=== PATIENT | male | born 1965 | race American Indian/Alaskan Native ===

== ENCOUNTER 2019-08-13 19:01 | Emergency (ER) | payer OTHER ==
[2019-08-14] MEDS ORDERED: MAGNESIUM CITRATE 300 ML ORAL LIQD PO ONE (01:25)
--- NOTE | 2019-08-14 01:26 | Emergency Department Report ---
ED General Adult HPI - General Chief complaint: High BP Stated complaint: CANT URINATE/HBP Time Seen by Provider: 08/14/19 00:55 Source: patient, RN notes reviewed, old records reviewed Mode of arrival: Ambulatory Limitations: No Limitations - History of Present Illness Initial comments: Patient is a pleasant 54-year-old gentleman. The patient has a history of high blood pressure, thrombosed hemorrhoid, and constipation. He was seen in this department for days ago with a complaint of constipation. He had a thorough workup, uneventful course, and was discharged with appropriate medication. He presents to the ER with a complaint of recurrent painless constipation. He is urinating without difficulty. He denies additional complaints. He endorses compliance with his medications. He reports taking plenty of water. He has no abdominal pain. He is passing gas. He has not had a bowel movement to his satisfaction. In the emergency room, he was treated with a soapsuds enema, which markedly improved his symptoms. -: Gradual Consistency: constant Improves with: medication Worsens with: none - Related Data Previous Rx's Medication Instructions Recorded Last Taken Type Docusate Sodium [Colace] 100 mg PO BID PRN #20 capsule 08/10/19 08/13/19 Rx amLODIPine 10 mg PO DAILY #30 tab 08/10/19 08/13/19 Rx Allergies Allergy/AdvReac Type Severity Reaction Status Date / Time No Known Allergies Allergy Verified 08/13/19 20:23 ED Review of Systems ROS: Stated complaint: CANT URINATE/HBP Other details as noted in HPI Constitutional: denies: fever Eyes: denies: eye discharge ENT: denies: congestion Respiratory: denies: wheezing Cardiovascular: denies: syncope Gastrointestinal: constipation Genitourinary: denies: dysuria Psychiatric: anxiety Hematological/Lymphatic: denies: easy bleeding ED Past Medical Hx - Past Medical History Hx Hypertension: Yes Additional medical history: Ulcer - Surgical History Additional Surgical History: abd - Social History Smoking Status: Current Every Day Smoker Substance Use Type: None - Medications Home Medications: Home Medications Medication Instructions Recorded Confirmed Last Taken Type Docusate Sodium [Colace] 100 mg PO BID PRN #20 capsule 08/10/19 08/13/19 08/13/19 Rx amLODIPine 10 mg PO DAILY #30 tab 08/10/19 08/13/19 08/13/19 Rx ED Physical Exam - General Limitations: No Limitations General appearance: alert, anxious - Head Head exam: Present: atraumatic, normocephalic - Eye Eye exam: Present: normal appearance, EOMI. Absent: nystagmus - ENT ENT exam: Present: normal exam, normal orophraynx, mucous membranes moist, normal external ear exam - Neck Neck exam: Present: normal inspection, full ROM. Absent: tenderness, meningismus - Respiratory Respiratory exam: Present: normal lung sounds bilaterally. Absent: respiratory distress - Cardiovascular Cardiovascular Exam: Present: regular rate, normal rhythm, normal heart sounds. Absent: bradycardia, tachycardia, irregular rhythm, systolic murmur, diastolic murmur, rubs, gallop - GI/Abdominal GI/Abdominal exam: Present: soft, normal bowel sounds. Absent: distended, tenderness, guarding, rebound, rigid, pulsatile mass - Rectal Rectal exam: Present: deferred - Extremities Exam Extremities exam: Present: normal inspection, full ROM, other (2+ pulses noted in the bilateral upper and lower extremities. There is no long bony tenderness. The pelvis is stable. The muscular compartments are soft. There is no palpable cord. There is no redness, pus or streaking.). Absent: pedal edema, calf tenderness - Back Exam Back exam: Present: normal inspection, full ROM. Absent: tenderness, CVA tenderness (R), CVA tenderness (L), paraspinal tenderness, vertebral tenderness - Neurological Exam Neurological exam: Present: alert, other (there is no facial droop. The tongue is midline. The extraocular movements are intact bilaterally. There is 5/5 strength in the bilateral upper and lower extremities. Sensation is intact to light touch in the bilateral upper and lower extremities. Hearing is intact. Tongue is midline. Speech is fluid, lucent and intact. Appropriate thought content. V1, V2, V3 intact bilaterally. Walks with a steady gait. There is no past-pointing. There is normal [id number]. There is a negative Romberg examination.). Absent: motor sensory deficit - Psychiatric Psychiatric exam: Present: anxious - Skin Skin exam: Present: warm, dry, intact, normal color. Absent: rash ED Course Vital Signs 08/13/19 08/14/19 20:25 01:00 Temperature 98.2 F Pulse Rate 93 H Respiratory 18 18 Rate Blood Pressure 185/110 O2 Sat by Pulse 100 100 Oximetry - Reevaluation(s) Reevaluation #1: 08/14/19 03:34 Patient feels improved. Have large copious bowel movement. He can take magnesium citrate at home. ED Medical Decision Making - Lab Data Vital Signs 08/13/19 08/14/19 20:25 01:00 Temperature 98.2 F Pulse Rate 93 H Respiratory 18 18 Rate Blood Pressure 185/110 O2 Sat by Pulse 100 100 Oximetry - Radiology Data Radiology results: report reviewed, image reviewed X-ray from 5 days ago reviewed and appreciated. No acute pathology - Medical Decision Making Differential diagnosis, including not limited to: Constipation, chronic elevated blood pressure Assessment and plan: 54-year-old gentleman, afebrile with reassuring vital signs, with the exception of chronic hypertension, presenting with recurrent constipation, likely experiencing natural history of constipation. We offered to discharge patient with prescriptions for magnesium citrate, as well as fleets enema, versus option of remaining in the ER for soap suds enema, and magnesium citrate in the emergency room. The patient opted to remain here for treatment. He was treated with a soapsuds enema, which markedly improved his symptoms. Hypertension reviewed and appreciated. Please reference the [employer] clinical policy and hypertension which is asymptomatic. This patient does not have an emergent medical condition at this time, and he can follow up with an outpatient primary care doctor. Critical care attestation.: If time is entered above; I have spent that time in minutes in the direct care of this critically ill patient, excluding procedure time. ED Disposition Clinical Impression: Constipation, Elevated blood pressure reading Disposition: - TO HOME OR SELFCARE Is pt being admited?: No Does the pt Need Aspirin: No Condition: Stable Additional Instructions: Please remember to drinking 4-6 cups of water per day, every day. Please make sure to eat plenty of fiber, vegetables, and lean protein. Avoid consumption of sugar, and simple carbohydrates. Constipation typically takes weeks to improve. Please remember to take outpatient blood pressure medication that was prescribed on previous visit. Long-term complications of hypertension includes stroke, heart attack, disability, paralysis, blindness, loss of quality of life. Recommend follow-up with a primary care doctor within the next 3-4 weeks. Please return to emergency room right away with new, worsening or different symptoms, or symptoms not present on the initial emergency room evaluation. Referrals: LEOPOLDO ALVARADO FNP [Primary Care Provider] - 3-5 Days
[2019-08-14 06:33] VITALS: BP 156/86
== END 2019-08-14 02:20 | disposition home or self-care (01) ==
LOC: ED 19:01
DX: K59.00 Constipation, unspecified (principal); R03.0 Elevated blood-pressure reading, without diagnosis of hypertension; I10 Essential (primary) hypertension; F17.200 Nicotine dependence, unspecified, uncomplicated; Z79.899 Other long term (current) drug therapy

== ENCOUNTER 2019-09-10 18:09 | Emergency (ER) | payer OTHER ==
[2019-09-10] MEDS ORDERED: ASPIRIN 325 MG TAB PO ONE (19:57)
[2019-09-10] MEDS ORDERED: ASPIRIN 81 MG TAB CHEW PO ONE (19:57)
--- NOTE | 2019-09-10 20:02 | Emergency Department Report ---
ED Palpitations HPI - General Chief Complaint: Chest Pain Stated Complaint: CHEST PAIN/BELLA Time Seen by Provider: 09/10/19 19:53 Source: patient, EMS Mode of arrival: Stretcher Limitations: No Limitations - History of Present Illness Initial Comments: Patient is 54 years old male with history of bipolar disorder and hypertension. Patient brought to the emergency room via EMS for evaluation of palpitation that started after he smoked marijuana this morning. Patient found to have a heart rate of 145 beats per minutes showing a sinus tachycardia. Patient stated that he had some chest pain with a palpitation restarted but not completely resolved. Patient denied any fever or chills. No cough or shortness of breath. MD Complaint: rapid heart beat, "heart racing" -: This morning - Related Data Previous Rx's Medication Instructions Recorded Last Taken Type Docusate Sodium [Colace] 100 mg PO BID PRN #20 capsule 08/10/19 08/13/19 Rx amLODIPine 10 mg PO DAILY #30 tab 08/10/19 08/13/19 Rx Allergies Allergy/AdvReac Type Severity Reaction Status Date / Time No Known Allergies Allergy Verified 08/13/19 20:23 ED Review of Systems ROS: Stated complaint: CHEST PAIN/BELLA Other details as noted in HPI Comment: All other systems reviewed and negative Constitutional: denies: chills, fever Respiratory: denies: cough, shortness of breath, SOB with exertion Cardiovascular: palpitations. denies: chest pain Gastrointestinal: denies: abdominal pain, nausea, vomiting Musculoskeletal: denies: back pain Neurological: denies: headache, weakness, numbness, paresthesias, confusion, abnormal gait ED Past Medical Hx - Past Medical History Previous Medical History?: Yes Hx Hypertension: Yes Hx Psychiatric Treatment: Yes (Bipolar) Additional medical history: Ulcer - Surgical History Past Surgical History?: Yes Additional Surgical History: abd - Social History Smoking Status: Never Smoker Substance Use Type: None - Medications Home Medications: Home Medications Medication Instructions Recorded Confirmed Last Taken Type Docusate Sodium [Colace] 100 mg PO BID PRN #20 capsule 08/10/19 08/13/19 08/13/19 Rx amLODIPine 10 mg PO DAILY #30 tab 08/10/19 08/13/19 08/13/19 Rx ED Physical Exam - General Limitations: No Limitations General appearance: alert, in no apparent distress - Head Head exam: Present: atraumatic, normocephalic, normal inspection - Eye Eye exam: Present: normal appearance - ENT ENT exam: Present: normal exam, normal orophraynx, mucous membranes moist - Neck Neck exam: Present: normal inspection, full ROM. Absent: tenderness, meningismus, lymphadenopathy, thyromegaly - Respiratory Respiratory exam: Present: normal lung sounds bilaterally - Cardiovascular Cardiovascular Exam: Present: regular rate, normal rhythm, normal heart sounds - GI/Abdominal GI/Abdominal exam: Present: soft, normal bowel sounds. Absent: distended, tenderness, guarding, rebound, rigid, organomegaly, mass, bruit, pulsatile mass, hernia - Extremities Exam Extremities exam: Present: normal inspection, full ROM, normal capillary refill. Absent: pedal edema, calf tenderness - Back Exam Back exam: Present: normal inspection, full ROM. Absent: CVA tenderness (R), CVA tenderness (L), muscle spasm, paraspinal tenderness, vertebral tenderness - Neurological Exam Neurological exam: Present: alert, oriented X3, CN II-XII intact, normal gait, reflexes normal - Psychiatric Psychiatric exam: Present: normal mood - Skin Skin exam: Present: warm, intact, normal color ED Course Vital Signs 09/10/19 09/10/19 09/10/19 18:46 19:46 21:25 Temperature 97.8 F Pulse Rate 77 62 Respiratory 15 14 Rate Blood Pressure Blood Pressure 144/95 [left arm] O2 Sat by Pulse 98 98 Oximetry 09/10/19 09/10/19 09/10/19 21:30 21:46 22:00 Temperature Pulse Rate 75 66 61 Respiratory 20 14 16 Rate Blood Pressure 142/92 Blood Pressure [left arm] O2 Sat by Pulse 100 100 99 Oximetry 09/10/19 23:00 Temperature Pulse Rate Respiratory Rate Blood Pressure 130/94 Blood Pressure [left arm] O2 Sat by Pulse 100 Oximetry ED Medical Decision Making - Lab Data Result diagrams: 09/10/19 20:08 09/10/19 20:08 - EKG Data -: EKG Interpreted by Ok EKG shows normal: sinus rhythm Rate: normal - EKG Data Interpretation: no acute changes - Radiology Data Radiology results: report reviewed - Medical Decision Making Patient is 54 years old male with history of bipolar disorder and hypertension. Patient brought to the emergency room via EMS for evaluation of palpitation that started after he smoked marijuana this morning. Patient found to have a heart rate of 145 beats per minutes showing a sinus tachycardia. Patient stated that he had some chest pain with a palpitation restarted but not completely resolved. Patient denied any fever or chills. No cough or shortness of breath. Patient remained chest pain-free. EKG showed no ST elevation or depression. Labs reviewed and is unremarkable including 2 sets of troponin. Chest x-ray is negative for acute finding. Patient advised to follow-up with his primary care physician in the next 2 to 3 days and to return to the ER if symptoms are not improved. Critical care attestation.: If time is entered above; I have spent that time in minutes in the direct care of this critically ill patient, excluding procedure time. ED Disposition Clinical Impression: Chest pain, Marijuana abuse Disposition: - TO HOME OR SELFCARE Is pt being admited?: No Condition: Stable Instructions: Chest Pain (ED) Referrals: PRIMARY CARE, [Primary Care Provider] - 3-5 Days
[2019-09-10 20:22] LABS: Bilirubin,Urine NEG (Negative); Blood,Urine MOD (Negative); Color,Urine Yellow (Yellow); Mucus,Urine 1+ /HPF; Protein,Urine <15 mg/dL mg/dL (Negative)
[2019-09-10 20:29] LABS: Amphetamine Screen,Urine PRESUMPTIVE NEGATIVE; Benzodiazepines Screen,Urine PRESUMPTIVE NEGATIVE; Cocaine Screen,Urine PRESUMPTIVE NEGATIVE; Methadone Screen,Urine PRESUMPTIVE NEGATIVE; Opiate Screen,Urine PRESUMPTIVE NEGATIVE
[2019-09-10 20:38] LABS: Basophils % (Auto) 0.7 % (0.0-1.8); Eosinophils % (Auto) 0.4 % (0.0-4.3); Hematocrit 48.7 % (35.5-45.6); Lymphocytes # (Auto) 0.9 K/mm3 (1.2-5.4); Mean Corpuscular HGB Conc 35 % (32-34); Mean Corpuscular Volume 90 fl (84-94); Monocytes # (Auto) 0.3 K/mm3 (0.0-0.8); Monocytes % (Auto) 4.4 % (0.0-7.3); Platelet Count 233 K/mm3 (140-440); Red Blood Count 5.41 M/mm3 (3.65-5.03)
--- NOTE | 2019-09-10 20:45 | XRay Report ---
CHEST 1 VIEW INDICATION / CLINICAL INFORMATION: Chest Pain. Palpitations and dyspnea. COMPARISON: Abdominal radiograph 08/09/2019 FINDINGS: SUPPORT DEVICES: None. HEART / MEDIASTINUM: No significant abnormality. LUNGS / PLEURA: No significant pulmonary or pleural abnormality. No pneumothorax. IMPRESSION: No acute finding. Signer Name: Larry Mendoza MD Signed: 09/10/2019 8:41 PM Workstation Name: [id number]
[2019-09-10 20:46] LABS: Cannabinoid Screen,Urine PRESUMPTIVE POSITIVE
[2019-09-10 20:49] LABS: INR 1.07 (0.87-1.13)
[2019-09-10 20:50] LABS: Partial Thromboplastin Time 28.5 Sec. (24.2-36.6)
[2019-09-10 20:59] LABS: BUN/Creatinine Ratio 15; Blood Urea Nitrogen 17 mg/dL (9-20); Calcium 9.6 mg/dL (8.4-10.2); Hemolysis Index 6
[2019-09-10 23:14] VITALS: BP 130/94
== END 2019-09-10 23:53 | disposition home or self-care (01) ==
LOC: ED 18:09
DX: R07.89 Other chest pain (principal); R00.2 Palpitations; R00.0 Tachycardia, unspecified; F12.10 Cannabis abuse, uncomplicated; I10 Essential (primary) hypertension; F31.9 Bipolar disorder, unspecified; Z98.890 Other specified postprocedural states; Z79.899 Other long term (current) drug therapy
CPT/HCPCS: 36415; 71045; 80048; 80307; 81001; 83735; 84484; 85025; 85379; 85610; 85730; 93005; 93010

== ENCOUNTER 2020-07-02 16:10 | Emergency (ER) | payer MEDICARE, OTHER ==
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
[2020-07-02] MEDS ORDERED: LIDOCAINE-MPF (1%) 10 MG/1 ML VIAL 5 ML INFILTRATI ONE (18:34)
[2020-07-02] MEDS ORDERED: HYDROcodone/ACETAMINOPHEN 5-325 MG TAB PO ONE (18:34)
[2020-07-02] MEDS ORDERED: DIPHtheria,PERTUSSIS(ACELL),TETANUS VACCINE/PF 0.5 ML VIAL IM ONE (18:34)
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
[2020-07-02] MEDS ORDERED: AMOXICILLIN/K CLAV 875/125MG TAB PO ONE (19:05)
[2020-07-02] MEDS ORDERED: hydrALAZINE 25 MG TAB PO ONE (19:44)
[2020-07-02 23:55] VITALS: BP 193/102
== END 2020-07-02 19:40 | disposition home or self-care (01) ==
LOC: ED 16:10
DX: S01.311A Laceration without foreign body of right ear, initial encounter (principal); I10 Essential (primary) hypertension; F31.9 Bipolar disorder, unspecified; Z98.890 Other specified postprocedural states; Z79.2 Long term (current) use of antibiotics; Z79.899 Other long term (current) drug therapy; Y04.1XXA Assault by human bite, initial encounter; Y93.89 Activity, other specified; Y92.89 Other specified places as the place of occurrence of the external cause; Y99.8 Other external cause status
CPT/HCPCS: 90471; 90715

== ENCOUNTER 2020-12-29 19:12 | Emergency (ER) | payer MEDICARE ==
[2020-12-29 19:45] VITALS: BP 177/130
[2020-12-29] MEDS ORDERED: cloNIDine 0.2 MG TAB PO ONE (19:45)
--- NOTE | 2020-12-29 19:51 | Emergency Department Report ---
ED General Adult HPI - General Chief complaint: High BP Stated complaint: ELEVATED BLOOD PRESSURE Time Seen by Provider: 12/29/20 19:44 Source: patient, police Mode of arrival: Ambulatory Limitations: No Limitations - History of Present Illness Initial comments: 55-year-old male with a past medical history of hypertension presents to the ER today with concerns of his blood pressure is elevated. Patient states that he has been under a lot of stress lately at home. He states that he has been arguing with his brother a lot lately about his girlfriend and today he started having some mild dizziness and lightheadedness and felt like his blood pressure was elevated. He states that he did not check it at home. He does take amlodipine and he states that he has been compliant with taking it every single day. Other than the dizziness and lightheadedness he denies any headache, vision changes, speech changes, chest pain, shortness of breath, numbness, tingling, focal weakness or any other additional symptoms. MD Complaint: Elevated BP/Dizzy -: days(s) (today) - Related Data Previous Rx's Medication Instructions Recorded Last Taken Type Docusate Sodium [Colace] 100 mg PO BID PRN #20 capsule 08/10/19 08/13/19 Rx amLODIPine 10 mg PO DAILY #30 tab 08/10/19 08/13/19 Rx Amoxicillin/Potassium Clav 1 each PO BID 7 Days #14 tablet 07/02/20 Unknown Rx [Augmentin 875-125 Tablet] traMADoL [Ultram] 50 mg PO Q6HR PRN #12 tablet 07/02/20 Unknown Rx Allergies Allergy/AdvReac Type Severity Reaction Status Date / Time No Known Allergies Allergy Verified 07/02/20 16:10 ED Review of Systems ROS: Stated complaint: ELEVATED BLOOD PRESSURE Other details as noted in HPI Comment: All other systems reviewed and negative Constitutional: denies: chills, fever Eyes: denies: eye pain, eye discharge, vision change ENT: denies: ear pain, throat pain, dental pain, hearing loss, epistaxis, congestion Respiratory: denies: cough, shortness of breath, SOB with exertion, SOB at rest, wheezing Cardiovascular: denies: chest pain, palpitations Gastrointestinal: denies: abdominal pain, nausea, diarrhea, constipation, hematemesis, hematochezia Genitourinary: denies: urgency, dysuria, frequency, hematuria, discharge, testicular pain, testicular mass Neurological: other (dizzy/lightheaded). denies: headache, weakness, numbness, paresthesias, confusion Psychiatric: denies: anxiety, depression, auditory hallucinations, visual hallucinations, homicidal thoughts, suicidal thoughts Hematological/Lymphatic: denies: easy bleeding, easy bruising, swollen glands ED Past Medical Hx - Past Medical History Previous Medical History?: Yes Hx Hypertension: Yes Hx Psychiatric Treatment: Yes (Bipolar) Additional medical history: Ulcer - Surgical History Past Surgical History?: Yes Additional Surgical History: abd - Social History Smoking Status: Current Every Day Smoker Substance Use Type: Alcohol - Medications Home Medications: Home Medications Medication Instructions Recorded Confirmed Last Taken Type Docusate Sodium [Colace] 100 mg PO BID PRN #20 capsule 08/10/19 08/13/1907/18 Rx amLODIPine 10 mg PO DAILY #30 tab 08/10/19 08/13/19 08/13/19 Rx Amoxicillin/Potassium Clav 1 each PO BID 7 Days #14 tablet 07/02/20 Unknown Rx [Augmentin 875-125 Tablet] traMADoL [Ultram] 50 mg PO Q6HR PRN #12 tablet 07/02/20 Unknown Rx ED Physical Exam - General Limitations: No Limitations General appearance: alert, in no apparent distress - Head Head exam: Present: atraumatic, normocephalic, normal inspection - Eye Eye exam: Present: normal appearance, PERRL, EOMI Pupils: Present: normal accommodation - ENT ENT exam: Present: normal exam, normal orophraynx, mucous membranes moist - Neck Neck exam: Present: normal inspection, full ROM - Respiratory Respiratory exam: Present: normal lung sounds bilaterally. Absent: respiratory distress, wheezes, rales, rhonchi, stridor - Cardiovascular Cardiovascular Exam: Present: regular rate, normal rhythm, normal heart sounds - GI/Abdominal GI/Abdominal exam: Present: soft. Absent: distended, tenderness, guarding, rebound - Back Exam Back exam: Present: normal inspection - Neurological Exam Neurological exam: Present: alert, oriented X3, CN II-XII intact, normal gait. Absent: motor sensory deficit - Expanded Neurological Exam Expanded Patient oriented to: Present: person, place, time Speech: Present: fluid speech Cerebellar function: Finger to Nose: Normal, Heel to [place]: Normal, [place]: Normal Upper motor neuron: Pronator Drift: Normal Sensory exam: Upper Extremity Light Touch: Normal, Lower Extremity Light Touch: Normal Motor strength exam: RUE: 5, LUE: 5, RLE: 5, LLE: 5 Best Eye Response ([place]): (4) open spontaneously Best Motor Response ([place]): (6) obeys commands Best Verbal Response (Jimmy): (5) oriented Jimmy Total: 15 - Psychiatric Psychiatric exam: Present: normal affect, normal mood - Skin Skin exam: Present: intact ED Course Vital Signs 12/29/20 12/29/20 19:42 20:27 Temperature 98.6 F Pulse Rate 83 96 H Respiratory 18 Rate Blood Pressure 177/130 177/130 O2 Sat by Pulse 99 Oximetry ED Medical Decision Making - Lab Data Result diagrams: 12/29/20 20:08 12/29/20 20:08 - EKG Data EKG shows normal: sinus rhythm Rate: normal (89) - EKG Data Interpretation: LVH - Medical Decision Making 2129: I tried to find patient to re-evaluate him and talk to him about his results and repeat his BP but he was no where to be found. Called for patient again at 2149 and 2213, again NA. Pt apparently eloped without notifying myself or staff. Critical care attestation.: If time is entered above; I have spent that time in minutes in the direct care of this critically ill patient, excluding procedure time. ED Disposition Clinical Impression: Uncontrolled hypertension, Dizzy, Stress reaction Disposition: Z-07 ELOPED Is pt being admited?: No Does the pt Need Aspirin: No Condition: Stable Instructions: Hypertension (ED)
[2020-12-29 20:20] LABS: Basophils % (Auto) 0.6 % (0.0-1.8); Eosinophils % (Auto) 0.1 % (0.0-4.3); Hematocrit 43.3 % (35.5-45.6); Hemoglobin 14.9 gm/dl (11.8-15.2); Lymphocytes % (Auto) 12.4 % (13.4-35.0); Mean Corpuscular HGB Conc 34 % (32-34); Mean Corpuscular Volume 90 fl (84-94); Monocytes # (Auto) 0.5 K/mm3 (0.0-0.8); Monocytes % (Auto) 6.5 % (0.0-7.3); Platelet Count 203 K/mm3 (140-440); Red Blood Count 4.83 M/mm3 (3.65-5.03); Red Cell Distribution Width 14.2 % (13.2-15.2)
[2020-12-29 21:21] LABS: Alanine Aminotransferase 20 units/L (7-56); Albumin 4.4 g/dL (3.9-5); BUN/Creatinine Ratio 9; Blood Urea Nitrogen 10 mg/dL (9-20); Hemolysis Index 7
--- NOTE | 2021-01-01 19:14 | Electrocardiograph Report ---
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
== END 2020-12-29 20:00 | disposition left against medical advice (07) ==
LOC: ED 19:12
DX: I10 Essential (primary) hypertension (principal); F43.9 Reaction to severe stress, unspecified; F31.9 Bipolar disorder, unspecified; F17.200 Nicotine dependence, unspecified, uncomplicated; Z72.89 Other problems related to lifestyle; Z79.899 Other long term (current) drug therapy; Z98.890 Other specified postprocedural states
CPT/HCPCS: 36415; 80053; 83735; 84484; 85025; 93005; 99283